=== PATIENT | female | born 1945 | race Caucasian/White ===

== ENCOUNTER 2016-11-05 08:15 | Emergency (ER) | payer OTHER ==
[2016-11-05 07:58] LABS: ALLENS TEST Pos; BE (BASE EXCESS) 2.9 MEQ/L (0 +/- 2.5); CARBOXYHEMOGLOBIN 2.8 % (0-3); DEVICE NC; HCO3 (ACTUAL BICARBONATE) 29.6 MEQ/L (23-27); HEMOBLOGIN CONTENT 13.9 G/DL (12-16); INSTRUMENT SERIAL # 8087; METHEMOGLOBIN 0.4 % (0-3); O2 CONTENT 18.3 VOL% (18-24); OPERATOR ID 35784; PCO2 (CO2 TENSION) 54 MMHG (35-45); PO2 (O2 TENSION) 87 MMHG (79-93); SAMPLE Arterial; pH 7.36 (7.37-7.43)
[2016-11-05 08:02] LABS: BASOPHILS 0.2 %; BASOPHILS ABSOLUTE 0.02 10/3/uL (0.0-0.16); EOSINOPHILS 0.6 %; EOSINOPHILS ABSOLUTE 0.06 10/3/uL (0.0-0.53); ER CBC TAT 0 Hrs 07 Mins; HEMATOCRIT 41.1 % (36.0-48.0); HEMOGLOBIN 13.6 g/dL (12.0-16.0); IMMATURE GRANULOCYTES 0.1 %; IMMATURE GRANULOCYTES ABSOLUTE 0.01 10/3/uL (0.0-0.11); LYMPHOCYTES 8.9 %; LYMPHOCYTES ABSOLUTE 0.87 10/3/uL (0.67-4.30); MEAN CORPUS HGB CONC 33.1 g/dL (32.0-36.0); MEAN CORPUSCULAR HEMOGLOB 28.7 pg (26.0-34.0); MEAN CORPUSCULAR VOLUME 86.7 fL (80-100); MEAN PLATELET VOLUME 9.1 fL (9.2-13.0); MONOCYTES 3.6 %; MONOCYTES ABSOLUTE 0.35 10/3/uL (0.21-1.20); NEUTROPHILS 86.6 %; NEUTROPHILS ABSOLUTE 8.52 10/3/uL (2.02-8.40); PLATELET COUNT 223 10/3/uL (150-400); RBC DISTRIBUTION WIDTH 13.9 % (12.0-16.0); RED CELL COUNT 4.74 10/6/uL (4.0-5.6); WHITE BLOOD CELLS 9.8 10/3/uL (4.5-10.5)
[2016-11-05 08:03] LABS: MANUAL DIFF NO %
[~2016-11-05 08:15] MED LIST: ADVAIR115P INH; ADVAIR250 INH; ASAB PO; ATROVENTUD INH; DALIRESP500 MCG PO; DUONEB INH; FLORASTOR250 MG PO; HERB; LEVAQUIN750 MG PO; MIRALAXPKT PO; MUCINEX600 MG PO; OMNICEF300 PO; P10 PO; P20 PO; PROAIR HFA INH; PROVENTSOL INH; SPIRIVA RESPIMAT INH; VICODINTAB PO; VOLTAREN1 % TOP; X25 PO; ZITH250 PO; [UNRECOGNIZED DRUG - OTHER] PO; [UNRECOGNIZED DRUG - OTHER] PO
[2016-11-05 08:18] LABS: A/G RATIO 1.1 (0.7-1.9); ALBUMIN 3.6 G/DL (3.5-5.0); ALKALINE PHOSPHATASE 90 U/L (45-117); BUN (BLOOD UREA NITROGEN) 13 MG/DL (6-23); CALCIUM, SERUM 8.9 MG/DL (8.5-10.4); CHLORIDE, SERUM 101 MMOL/L (96-112); CO2 (CARBON DIOXIDE) 33 MMOL/L (24-34); GFR AFRICAN AMERICAN 114 ML/MIN (>=60); GFR NON AFRICAN AMERICAN 99 ML/MIN (>=60); GLOBULIN 3.3 G/DL (2.5-4.1); GLUCOSE, SERUM 103 MG/DL (60-99); SGOT(AST) 13 U/L (5-40); SGPT(ALT) 19 U/L (5-65); SODIUM, SERUM 137 MMOL/L (135-148); TOTAL PROTEIN 6.9 G/DL (6.0-8.5)
[2016-11-05 08:19] LABS: TOTAL BILIRUBIN 0.2 MG/DL (0-1.2)
[2016-11-17] MEDS ORDERED: PROAIR HFA INH (18:19)
[2016-11-17] MEDS ORDERED: DUONEB INH (18:20)
[2016-11-17] MEDS ORDERED: ADVAIR250 INH (18:21)
[2016-11-17] MEDS ORDERED: INCRUSE ELLI62.5 MCG INH (18:21)
[2016-11-17] MEDS ORDERED: PRED50B PO (18:24)
[2016-11-17] MEDS ORDERED: MONODOX100 MG PO (18:36)
[2016-11-17] MEDS ORDERED: NIACIN100 PO (18:38)
== END 2016-11-05 10:32 | disposition home or self-care (01) ==
LOC: ER 08:15
PROVIDERS: Emergency Medicine
DX: J44.1 Chronic obstructive pulmonary disease with (acute) exacerbation (principal); I10 Essential (primary) hypertension; E11.9 Type 2 diabetes mellitus without complications; F17.200 Nicotine dependence, unspecified, uncomplicated; Z87.01 Personal history of pneumonia (recurrent); Z86.73 Personal history of transient ischemic attack (TIA), and cerebral infarction without residual deficits; Z79.82 Long term (current) use of aspirin; Z79.52 Long term (current) use of systemic steroids; Z79.891 Long term (current) use of opiate analgesic; Z79.899 Other long term (current) drug therapy
CPT/HCPCS: 36600; 71010; 80053; 82805; 85025; 87040; 87070; 87205; 93005; 94640; 99285; A9270-GY